=== PATIENT | male | born 1995 | race Caucasian/White ===

== ENCOUNTER 2016-04-19 17:46 | Inpatient (IN) | payer OTHER ==
[~2016-04-19] VITALS: Ht 185.4 cm; Wt 85.9 kg
[2016-04-19 18:47] LABS: MEAN CORPUSCULAR HGB CONC 35.2 g/dl (32.0-36.5); MEAN CORPUSCULAR VOLUME 87.8 fl (80.0-96.0); RED CELL DISTRIBUTION WIDTH 12.9 % (11.5-14.5); WHITE BLOOD COUNT 5.5 K/mm3 (4.0-10.0)
[2016-04-19 19:01] LABS: AMPHETAMINES LEVEL URINE NEGATIVE (NEGATIVE); BENZODIAZEPINES URINE NEGATIVE (NEGATIVE); COCAINE METABOLITE URINE NEGATIVE (NEGATIVE); CONTROL LINE INT CTR LINE PRESENT; METHADONE URINE NEGATIVE (NEGATIVE); OPIATES URINE NEGATIVE (NEGATIVE); TRICYCLIC ANTIDEPRESS URINE NEGATIVE (NEGATIVE)
[2016-04-19 19:16] LABS: ALBUMIN 4.1 GM/DL (3.2-5.2); ALBUMIN/GLOBULIN RATIO 1.28 (1.00-1.93); ALKALINE PHOSPHATASE 76 U/L (45-117); ALT/SGPT 27 U/L (12-78); ANION GAP 8 MEQ/L (8-16); AST/SGOT 14 U/L (15-37); BILIRUBIN,DIRECT 0.1 MG/DL (0.0-0.2); BILIRUBIN,TOTAL 0.5 MG/DL (0.2-1.0); BLOOD UREA NITROGEN 8 MG/DL (7-18); CALCIUM LEVEL 9.1 MG/DL (8.5-10.1); CARBON DIOXIDE LEVEL 28 MEQ/L (21-32); CHLORIDE LEVEL 109 MEQ/L (98-107); CREATININE FOR GFR 0.97 MG/DL (0.70-1.30); GLOMERULAR FILTRATION RATE > 60.0 (>60); GLUCOSE, FASTING 71 MG/DL (70-105); POTASSIUM SERUM 4.1 MEQ/L (3.5-5.1); SODIUM LEVEL 145 MEQ/L (136-145); TOTAL PROTEIN 7.3 GM/DL (6.4-8.2)
[2016-04-20] MEDS ORDERED: VENLAFAXINE **XR** 75MG CAPSULE PO SCH (09:00)
[2016-04-20] MEDS ORDERED: IBUP80TA PO (09:29)
--- NOTE | 2016-04-20 12:09 | EDDOCDS ---
Physician Documentation [facility] Name: Jose L Saldivar Age: 21 yrs Sex: Male : 1995 Arrival Date: 04/19/2016 Time: 17:46 Bed OBSERVATION Private MD: Disposition: 04/20/16 09:15 Hospitalization ordered by Lux Herr for Inpatient Admission. Preliminary diagnosis is Major depressive disorder, recurrent, moderate. - Bed requested for Admit. - Status is Inpatient Admission. me3 - Condition is Stable. - Problem is an acute exacerbation. - Symptoms are unchanged. Historical: - Allergies: no known allergies; - Home Meds: 1. none - PMHx: Depression; - PSHx: wisdom teeth extracted; - Social history: Smoking status: Patient states was never smoker of tobacco. Patient uses alcohol only on a social basis. pt reports drinking, "5-6 beers and some rum last pm". . No barriers to communication noted, The patient speaks fluent Samoan. - Family history: Not pertinent. - : The pt / caregiver states he / she is not on anticoagulants. Home medication list is obtained from the patient. - Exposure Risk Screening:: None identified. Vital Signs: 04/19 17:49 BP 196 / 83 RA Sitting (auto/reg); Pulse 89; Resp 18; Temp 97.5; Pulse Ox 100% ; Weight jrd 86.18 kg / 189.99 lbs (R); Height 6 ft. 1 in. (185.42 cm) (R); Pain 0/10; 19:21 BP 154 / 87; Pulse 69; Resp 18; Pulse Ox 98% ; mas 04/20 04:31 BP 159 / 70; Pulse 66; Resp 16; Temp 98.2(T); Pulse Ox 98% ; Pain 0/10; mas 12:00 BP 137 / 75; Pulse 64; Resp 16; Temp 97.3; Pulse Ox 99% ; me3 04/19 17:49 Body Mass Index 25.07 (86.18 kg, 185.42 cm) jrd MDM: 04/19 18:28 Consult PFS/PSA/Credit Cashier ordered. br1 18:28 Consult PFS/PSA/Credit Cashier: Patient's case requires discussion with on-call br1 Psychiatrist ordered. 18:28 PSA/PFS to call Nursing Senior Administrator Support, to enter patient data on [place] Safe Act if patient br1 involuntarily admitted or transferred for SI or HI ordered. 18:28 Confirm accurate psychiatric medication list and times of last dosage ordered. br1 18:28 Detain Pt Until Medically/PFS Cleared ordered. br1 18:29 Acetaminophen Level Ordered. EDMS 18:29 Basic Metabolic Profile Ordered. EDMS 18:29 Complete Blood Count Ordered. EDMS 18:29 Drug Eval Toxicology ED Only Ordered. EDMS 18:29 Ethyl Alcohol (ethanol) Ordered. EDMS 18:29 Liver Profile Ordered. EDMS 18:29 Salicylate Level Ordered. EDMS 18:29 Thyroid Stimulating Hormone Ordered. EDMS 18:32 REGULAR DIET PLASTIC MEDINA+DIET ordered. EDMS 18:52 Consult PFS/PSA/Credit Cashier complete. ml4 18:52 Consult PFS/PSA/Credit Cashier: Patient's case requires discussion with on-call [facility] Psychiatrist complete. 19:38 PSA/PFS to call Nursing Senior Administrator Support, to enter patient data on [place] Safe Act if patient ml4 involuntarily admitted or transferred for SI or HI complete. 20:18 Acetaminophen Level Reviewed. br1 20:18 Basic Metabolic Profile Reviewed. br1 20:18 Ethyl Alcohol (ethanol) Reviewed. br1 20:18 Liver Profile Reviewed. br1 20:18 Salicylate Level Reviewed. br1 20:18 Complete Blood Count Reviewed. br1 20:18 Drug Eval Toxicology ED Only Reviewed. br1 20:18 Thyroid Stimulating Hormone Reviewed. br1 20:19 Consult PFS/PSA/Socail Worker: Cleared medically for eval ordered. br1 20:23 Consult PFS/PSA/Socail Worker: Cleared medically for eval complete. cl 20:34 Other: [place] contact information was scanned into [employer] and attached to record. ml4 21:39 Financial registration complete. zo 21:41 [facility] Payment Agreement was scanned into [employer] and attached to record. zo 04/20 03:36 ECG WITH READING ER PHYS+CARDIAG ordered. EDMS 04:17 REGULAR DIET PLASTIC MEDINA+DIET ordered. EDMS 04:19 [facility] Legal paperwork was scanned into [employer] and attached to record. cl 11:16 REGULAR DIET PLASTIC MEDINA+DIET ordered. EDMS 11:57 Admit to COUNT INCLUDES THE [facility]: ordered. EDMS Signatures: Dispatcher [employer] EDMS Mattie Hernandez MD MD sd1 Brenden Carrillo, PSA PSA cl Traci Fuller,POLICE DISTRICT SWITCHBOARD OPERATOR POLICE DISTRICT SWITCHBOARD OPERATOR me3 Flor Paredes, PSA PSA ml4 Kyaw Heller Matthew, DO mm11 Prosper Escalante MD MD br1 Tulio GargRN RN mb9 The chart was reviewed and I authenticate all verbal orders and agree with the evaluation and treatment provided.Corrections: (The following items were deleted from the chart) 04/19 18:12 18:11 PMHx: none; mb9 mb9 Attachments: 21:41 [facility] Payment Agreement zo MTDD
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
[2016-04-20 12:25] VITALS: BP 138/88
[2016-04-20] MEDS ORDERED: No home medications (12:25)
[2016-04-20] MEDS ORDERED: MOM 30ML SUSPENSION UDC PO PRN (13:30)
[2016-04-20] MEDS ORDERED: MAALOX 30 ML SUSP *UDC PO PRN (13:30)
[2016-04-20] MEDS ORDERED: ACETAMINOPHEN TAB 650MG DOSE (2X325MG) PO PRN (13:30)
[2016-04-20 18:00] VITALS: BP 127/62
[2016-04-20] MEDS ORDERED: hydrOXYzine 50 MG TAB PO PRN (18:30)
--- NOTE | 2016-04-20 18:55 | HPEPDOC ---
[facility] History & Physical History and Physical DATE OF ADMISSION: Apr 20, 2016 at 12:17 CHIEF COMPLAINT: "Cause I have some depression and anxiety issues that need to be resolved". 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 Patient feels that his chain of command has lost janina in him. Patient also feels this is a punitive consequence of not saying the word sergeant to a chain of command's liking. Patient thinks this is a three -month transfer and demotion. Patient states because of this demotion he was feeling isolated and alone. Patient does not know anyone, all of his friends are in the heavy equipment mechanic unit. Patient admits after getting drunk on his own time he was not thinking clearly and cut himself on the thigh, approximately 15 times, superficially. Patient states he had cut at 16 years old. Patient states he has not cut since then. Patient feels that alcohol was a contributing factor to this poor decision. Patient does feel a release when he does cut. Patient had no intention of killing himself by cutting, only did it for the release. PAST PSYCHIATRIC HISTORY: Patient states is a 16-year-old he saw a psychiatrist due to cutting patient reports he saw this provider for approximately 6 months and was released from his care. Patient states he had therapy only was never put on medications. Patient reports this is his first psychiatric admission. ALLERGIES: Please see below. HOME MEDICATIONS: Patient denies. PAST MEDICAL HISTORY: Patient denies. FAMILY PSYCHIATRIC HISTORY: Patient reports his mother has anxiety and depression and is on meds patient thinks his dad has depression and is not on meds. Patient also knows of a maternal uncle had depression. Patient denies any other psychiatric or mental health issues in his family. 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 Patient has no children. Patient states he has a 26-year-old sister who he is somewhat close to. Patient also reports that he is supported by his parents. Patient also has a maternal uncle named Braxton that he feels supported by. SUBSTANCE ABUSE HISTORY: Patient denies any kind of drug use or abuse. Patient does report that he drinks 2-3 times a month, but not every month patient reports when he does drink he gets drunk. Patient does not know why this is patient does not state he can't drink and not get drunk. LEGAL HISTORY: Patient denies, only traffic tickets which are resolved. VITAL SIGNS: Temperature 97.8, pulse 76, respiratory rate 20, blood pressure 138 /88, at 12:25 PM. LABORATORY DATA: Please see below. Patient's alcohol level on admission was 0.025 which is high chloride is 109 which is high AST is 14 which is low. Remaining UDS was negative. MENTAL STATUS EXAMINATION: Patient is a 21 year old male, who is pleasant, cooperative, average grooming, average weight and build. Patient is wearing hospital scrubs and T-shirt. Patient is noted to ambulate with a steady gait. Speech: Is is of a normal rate, volume, and articulation, and is coherent and spontaneous. Language: Intact. Thought processes: Clear, not goal-directed. Thought content: Rational, logical, circumstantial. Abstract reasoning, and computation: Adequate. Description of associations: Intact. Description of abnormal or psychotic thoughts: Patient denies hallucinations, delusions, paranoia, obsessions or compulsions. Patient further denies homicidal or suicidal ideation or plan. Patient again states he only cut for the release it provides him. Patient does feel he is preoccupied with being alone. Pt. states his baseline depression is 2/10, anxiety baseline is 3/10. Pt. currently feels depression is 2-3/10 and anxiety is 3-4/10. Judgment: Poor. Insight: Poor. Oriented to: Time, person, place and surroundings. Recent and remote memory: No issues per patient. Attention span and concentration: Fair. Language: Normal. Fund of knowledge: Adequate. Mood: "I feel pretty good, better then the other night ". Patient appears sad, depressed, restricted, rational, logical. Affect: Appropriate, restricted, rational, logical, sad. DIAGNOSES: 1. Major depressive disorder, recurrent, moderate. 2. Alcohol use disorder. 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 Patient had been recently demoted in his position to [employer] which she feels is a direct punishment from his command. Due to this job change, patient has felt cut off from all of his support system and friends. Patient reports with the addition of alcohol, and drinking too much he did not make good decisions. Patient states he had no intention of self-harm or acting on the threat of killing himself. Patient does admit to having problems with depression and anxiety that he feels he needs to have treatment for. Patient states he is excited about going to [place] with his unit in October. Patient reports he likes his position in the [employer] when he can work as a heavy equipment mechanic. Patient appears sad, despondent at times. Patient does feel cut off from prior support system and feels this contributed to the problem. Patient understands and admits the need for him to learn some better coping mechanisms. Patient did not tell provider that there is a suicide attempt in his past at age 14. Per the record patient tried to drown himself, however he was never hospitalized for this incident, unknown if pt. ever told anyone about the incident. PROBLEM LIST: 1. Substance abuse. 2. Ineffective coping. 3. Depression. INITIAL MANAGEMENT PLAN: Patient to be continually assessed and evaluated. Maintain safety precautions. to attend groups and participate in unit programming and activities to develop effective coping strategies patient to be engaged in discharge planning process to ensure safe and effective discharge plan. Patient to follow-up with primary care physician upon discharge. Patient to start therapy and medication management services upon discharge. Patient to be referred to [facility] upon discharge. ESTIMATED LENGTH OF STAY: 5-7 DAYS. TIME SPENT COUNSELING AND COORDINATING INITIAL CARE: 50 minutes. Laboratory Data [facility] Labs Laboratory Tests 2 04/19/16 18:38: Acetaminophen Level < 2.0L, Aspartate Amino Transf (AST/SGOT) 14L, Alanine Aminotransferase (ALT/SGPT) 27, Alkaline Phosphatase 76, Total Bilirubin 0.5, Direct Bilirubin 0.1, Albumin 4.1, Albumin/Globulin Ratio 1.28, Anion Gap 8, Calcium Level 9.1, Ethyl Alcohol Level 0.025H, Glomerular Filtration Rate > 60.0 , Salicylates Level < 1.7L, Thyroid Stimulating Hormone (TSH) 1.390, Total Protein 7.3, Urine Amphetamines Screen NEGATIVE, Urine Benzodiazepines Screen NEGATIVE, Urine Opiates Screen NEGATIVE, Urine Barbiturates Screen NEGATIVE, Urine Cannabinoids Screen NEGATIVE, Urine Cocaine Metabolite Screen NEGATIVE, Urine Methadone Screen NEGATIVE, Urine Tricyclic Antidepressants NEGATIVE CBC/BMP Laboratory Tests 04/19/16 18:38 Red Blood Count 4.88, Mean Corpuscular Volume 87.8, Mean Corpuscular Hemoglobin 31.0, Mean Corpuscular Hemoglobin Concent 35.2, Red Cell Distribution Width 12.9 Medications Miscellaneous Medications ([No home medications]) . (Reported) Allergies Coded Allergies: No Known Allergies (Unverified , 04/20/16) SHANTI KNIGHT NP Apr 20, 2016 18:55
[2016-04-20] MEDS: traZODone 50 MG TAB PO PRN (22:07)
[2016-04-21 06:35] VITALS: BP 130/78
--- NOTE | 2016-04-21 08:24 | ECGEPIP ---
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
--- NOTE | 2016-04-21 11:20 | IPNPDOC ---
[facility] Progress Note Progress Note DATE OF SERVICE: 04/21/16 HISTORY: "Cause I have some depression and anxiety issues that need to be resolved". 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 Patient feels that his chain of command has lost janina in him. Patient also feels this is a punitive consequence of not saying the word sergeant to a chain of command's liking. Patient thinks this is a three-month transfer and demotion. Patient states because of this demotion he was feeling isolated and alone. Patient does not know anyone, all of his friends are in the construction equipment mechanic unit. Patient admits after getting drunk on his own time he was not thinking clearly and cut himself on the thigh, approximately 15 times, superficially. Patient states he had cut at 16 years old. Patient states he has not cut since then. Patient feels that alcohol was a contributing factor to this poor decision. Patient does feel a release when he does cut. Patient had no intention of killing himself by cutting, only did it for the release. PAST PSYCHIATRIC HISTORY: Patient states is a 16-year-old he saw a psychiatrist due to cutting patient reports he saw this provider for approximately 6 months and was released from his care. Patient states he had therapy only was never put on medications. Patient reports this is his first psychiatric admission. ALLERGIES: Please see below. HOME MEDICATIONS: Patient denies. PAST MEDICAL HISTORY: Patient denies. FAMILY PSYCHIATRIC HISTORY: Patient reports his mother has anxiety and depression and is on meds patient thinks his dad has depression and is not on meds. Patient also knows of a maternal uncle had depression. Patient denies any other psychiatric or mental health issues in his family. 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 Patient has no children. Patient states he has a 26-year-old sister who he is somewhat close to. Patient also reports that he is supported by his parents. Patient also has a maternal uncle named Braxton that he feels supported by. SUBSTANCE ABUSE HISTORY: Patient denies any kind of drug use or abuse. Patient does report that he drinks 2-3 times a month, but not every month patient reports when he does drink he gets drunk. Patient does not know why this is patient does not state he can't drink and not get drunk. LEGAL HISTORY: Patient denies, only traffic tickets which are resolved. VITAL SIGNS: Temperature 98.9, pulse 60, respiratory rate 20, blood pressure 130 /78. LABORATORY DATA: Please see below. Patient's alcohol level on admission was 0.025 which is high chloride is 109 which is high AST is 14 which is low. Remaining UDS was negative. CURRENT MEDICATIONS: See below. Trazodone 50 mg po q hs prn, Hydroxyzine hcl 50 mg po q 6h prn for anxiety/agitation. To continue to assess if anti depressant is needed as it makes pt. bordering on manic. MENTAL STATUS EXAMINATION: Patient is a 21 year old male, who is pleasant, cooperative, average grooming, average weight and build. Patient is wearing hospital scrubs and T-shirt. Patient is noted to ambulate with a steady gait. Speech: Is is of a normal rate, volume, and articulation, and is coherent and spontaneous. Language: Intact. Thought processes: Clear, not goal-directed. Thought content: Rational, logical. Abstract reasoning, and computation: Adequate. Description of associations: Intact. Description of abnormal or psychotic thoughts: Patient denies hallucinations, delusions, paranoia, obsessions or compulsions. Patient further denies homicidal or suicidal ideation or plan. Patient again states he only cut for the release it provided him. Pt. denies any thoughts of self-harm today. Patient does not feel any preoccupations at this time. Pt. states his baseline depression is 2/10, anxiety baseline is 3/10. Pt. currently feels depression is 0/10 and anxiety is 1-2/10. Judgment: Poor. Insight: Poor. Oriented to: Time, person, place and surroundings. Recent and remote memory: No issues per patient. Attention span and concentration: Fair. Language: Normal. Fund of knowledge: Adequate. Mood: "Good, I'm in a great mood". Patient appears brighter, less depressed, still restricted, rational, logical. Affect: Appropriate, restricted, rational, logical, less sad. DIAGNOSES: 1. Major depressive disorder, recurrent, moderate. 2. Alcohol use disorder. 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 Due to this job change, patient has felt cut off from all of his support system and friends. Patient reports with the addition of alcohol, and drinking too much he did not make good decisions. Patient states he had no intention of self-harm or acting on the threat of killing himself. Patient does admit to having problems with depression and anxiety, that he recognizes he needs to have treatment for. Patient states he is excited about going to [place] with his unit in October. 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 Patient appears sad, despondent at times. Patient does feel cut off from prior support system and feels this contributed to the problem. Patient understands and admits the need for him to learn some better coping mechanisms. Patient did not tell provider that there is a suicide attempt in his past at age 14. Per the record patient tried to drown himself, however he was never hospitalized for this incident, unknown if pt. ever told anyone about the incident. Pt. states he feels better today, attributes it to a good night's sleep. Pt. states he slept "Pretty well, pretty well, very solid". Pt. reports he slept for 7 hours and felt well rested, not groggy on rising. Pt. denies any nightmares or night terrors. MANAGEMENT PLAN: Patient to be continually assessed and evaluated. Maintain safety precautions. Patient to attend groups and participate in unit programming and activities to develop effective coping strategies . Patient to be engaged in discharge planning process to ensure safe and effective discharge plan. Patient to follow-up with primary care physician upon discharge. Patient to start therapy and medication management services upon discharge. Patient to be referred to [facility] upon discharge. TIME SPENT: 25 minutes. Discussed with patient that this will be providers last day. Pt. reassured that he will be transferred to another provider for the remainder of his care. Pt. states understanding. Vital Signs Vital Signs Date Time Temp Pulse Resp B/P Pulse Ox O2 Delivery O2 Flow Rate FiO2 04/21/16 06:35 98.9 60 20 130/78 04/20/16 12:25 Room Air Current Medications Current Medications Acetaminophen (Tylenol Tab) 650 mg Q6HP PRN PO HEADACHE or DISCOMFORT; Start at 13:30; Stop 05/20/16 at 13:29 Al Hydrox/Mg Hydrox/Simethicone (Mylanta) 30 ml Q4HP PRN PO HEARTBURN/ INDIGESTION; Start 04/20/16 at 13:30; Stop 05/20/16 at 13:29 Home Med (Med Rec Complete!) ASDIRECTED XX ; Start 04/20/16 at 09:30; Stop at 09:33; Status DC Hydroxyzine HCl (Atarax) 50 mg Q6HP PRN PO ANXIETY/AGITATION; Start 04/20/16 at 18:30; Stop 05/20/16 at 18:29 Magnesium Hydroxide (Milk Of Magnesia) 30 ml DAILYPRN PRN PO CONSTIPATION; Start 04/20/16 at 13:30; Stop 05/20/16 at 13:29 Trazodone HCl (Desyrel) 50 mg QHSP PRN PO INSOMNIA Last administered on 22:07; Start 04/20/16 at 13:30; Stop 05/20/16 at 13:29 Venlafaxine HCl (Effexor Xr) 75 mg QAM PO Last administered on 04/20/16 13 :54; Start 04/20/16 at 09:00; Stop 04/20/16 at 18:21; Status DC Allergies Coded Allergies: No Known Allergies (Unverified , 04/20/16) SHANTI KNIGHT NP Apr 21, 2016 11:20
--- NOTE | 2016-04-21 15:25 | HPE ---
DATE OF ADMISSION: 04/20/2016 HISTORY OF PRESENT ILLNESS: Please refer to the psychiatric history and evaluation for further details on this admission. This examination and history is intended for medical issues, which may need treatment, followup or consultation on this 21-year-old male. MEDICAL PRIMARY CARE PHYSICIAN: [facility] ALLERGIES: NO KNOWN ALLERGIES. SOCIAL HISTORY: He is a single. Ethyl alcohol (EtOH): Weekends. Smokes: None. Recreational drug use: None. PAST MEDICAL HISTORY: Negative. PAST SURGICAL HISTORY: Ida teeth extraction. HOME MEDICATIONS: None. 10-systems review was done. It was negative. PHYSICAL EXAMINATION: 21-year-old male in no acute distress. Height 73 inches. Weight 85.5 kg. Body mass index (BMI) 24.9 Patient is awake, alert and oriented times three. Pupils equal and reactive to light. Extraocular movements (EOMs) intact. Cornea and sclera clear. Conjunctiva was normal. No facial asymmetry. Pharynx, tongue and gum is pink and moist. Tongue is midline. Neck is supple, without lymphadenopathy. No thyromegaly. No goiter. Chest clear to auscultation, without wheeze or retraction. Heart is regular. Abdomen benign. Bowel sounds positive. Genitourinary()/rectal not done. Extremities show equal strength, full range of motion. No cyanosis, clubbing, or edema. Peripheral pulses equal and palpable bilaterally. Skin is warm and dry. IMPRESSION AND PLAN: 1. Psychiatric. Plan per psychiatry. 2. No acute medical issues.
[2016-04-21 18:00] VITALS: BP 137/86
[2016-04-21] MEDS: traZODone 50 MG TAB PO PRN (21:51)
[2016-04-22 06:31] VITALS: BP 128/75
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
--- NOTE | 2016-04-22 13:10 | EDDOCDS ---
Physician Documentation [facility] Name: Jose L Saldivar Age: 21 yrs Sex: Male : 1995 Arrival Date: 04/19/2016 Time: 17:46 Bed OBSERVATION Private MD: Disposition: 04/20/16 09:15 Hospitalization ordered by Lux Herr for Inpatient Admission. Preliminary diagnosis is Major depressive disorder, recurrent, moderate. - Bed requested for Admit. - Status is Inpatient Admission. me3 - Condition is Stable. - Problem is an acute exacerbation. - Symptoms are unchanged. Historical: - Allergies: no known allergies; - Home Meds: 1. none - PMHx: Depression; - PSHx: wisdom teeth extracted; - Social history: Smoking status: Patient states was never smoker of tobacco. Patient uses alcohol only on a social basis. pt reports drinking, "5-6 beers and some rum last pm". . No barriers to communication noted, The patient speaks fluent Croatian. - Family history: Not pertinent. - : The pt / caregiver states he / she is not on anticoagulants. Home medication list is obtained from the patient. - Exposure Risk Screening:: None identified. Vital Signs: 04/19 17:49 BP 196 / 83 RA Sitting (auto/reg); Pulse 89; Resp 18; Temp 97.5; Pulse Ox 100% ; Weight jrd 86.18 kg / 189.99 lbs (R); Height 6 ft. 1 in. (185.42 cm) (R); Pain 0/10; 19:21 BP 154 / 87; Pulse 69; Resp 18; Pulse Ox 98% ; mas 04/20 04:31 BP 159 / 70; Pulse 66; Resp 16; Temp 98.2(T); Pulse Ox 98% ; Pain 0/10; mas 12:00 BP 137 / 75; Pulse 64; Resp 16; Temp 97.3; Pulse Ox 99% ; me3 04/19 17:49 Body Mass Index 25.07 (86.18 kg, 185.42 cm) jrd MDM: 04/19 18:28 Consult PFS/PSA/Embedded Software Development Engineer ordered. br1 18:28 Consult PFS/PSA/Embedded Software Development Engineer: Patient's case requires discussion with on-call br1 Psychiatrist ordered. 18:28 PSA/PFS to call Nursing Hydraulic And Plumbing Installer, to enter patient data on [place] if patient br1 involuntarily admitted or transferred for SI or HI ordered. 18:28 Confirm accurate psychiatric medication list and times of last dosage ordered. br1 18:28 Detain Pt Until Medically/PFS Cleared ordered. br1 18:29 Acetaminophen Level Ordered. EDMS 18:29 Basic Metabolic Profile Ordered. EDMS 18:29 Complete Blood Count Ordered. EDMS 18:29 Drug Eval Toxicology ED Only Ordered. EDMS 18:29 Ethyl Alcohol (ethanol) Ordered. EDMS 18:29 Liver Profile Ordered. EDMS 18:29 Salicylate Level Ordered. EDMS 18:29 Thyroid Stimulating Hormone Ordered. EDMS 18:32 REGULAR DIET PLASTIC MEDINA+DIET ordered. EDMS 18:52 Consult PFS/PSA/Embedded Software Development Engineer complete. ml4 18:52 Consult PFS/PSA/Embedded Software Development Engineer: Patient's case requires discussion with on-call [facility] Psychiatrist complete. 19:38 PSA/PFS to call Nursing Hydraulic And Plumbing Installer, to enter patient data [place] if patient ml4 involuntarily admitted or transferred for SI or HI complete. 20:18 Acetaminophen Level Reviewed. br1 20:18 Basic Metabolic Profile Reviewed. br1 20:18 Ethyl Alcohol (ethanol) Reviewed. br1 20:18 Liver Profile Reviewed. br1 20:18 Salicylate Level Reviewed. br1 20:18 Complete Blood Count Reviewed. br1 20:18 Drug Eval Toxicology ED Only Reviewed. br1 20:18 Thyroid Stimulating Hormone Reviewed. br1 20:19 Consult PFS/PSA/Socail Worker: Cleared medically for eval ordered. br1 20:23 Consult PFS/PSA/Socail Worker: Cleared medically for eval complete. cl 20:34 Other: [place] contact information was scanned into [email or web address] and attached to record. ml4 21:39 Financial registration complete. zo 21:41 [facility] [place] Agreement was scanned into [email or web address] and attached to record. zo 04/20 03:36 ECG WITH READING ER PHYS+CARDIAG ordered. EDMS 04:17 REGULAR DIET PLASTIC MEDINA+DIET ordered. EDMS 04:19 [facility] Legal paperwork was scanned into [email or web address] and attached to record. cl 11:16 REGULAR DIET PLASTIC MEDINA+DIET ordered. EDMS 11:57 Admit to IM: ordered. EDMS 13:39 T-Sheet-- Draft Copy was scanned into [email or web address] and attached to record. gb 13:40 ECG/EKG was scanned into [employer] and attached to record. gb Signatures: Dispatcher [employer] EDMS Mattie Hernandez MD MD sd1 Lorena, Brenden, PSA PSA cl Brooklyn Broussard, Reg Reg gb Traci Fuller,TRAILER TRUCK DRIVER TRAILER TRUCK DRIVER me3 Flor Paredes, PSA PSA ml4 Kyaw Heller Matthew, DO DO mm11 Prosper Escalante MD MD br1 Tulio Garg,JUN RN mb9 The chart was reviewed and I authenticate all verbal orders and agree with the evaluation and treatment provided.Corrections: (The following items were deleted from the chart) 04/19 18:12 18:11 PMHx: none; pavel mb9 Attachments: 21:41 [facility] [place] Payment Agreement zo 13:39 T-Sheet-- Draft Copy gb 13:40 ECG/EKG gb Chart Complete MTDD
--- NOTE | 2016-04-22 13:10 | EDDOCDS ---
Physician Documentation [facility] Name: Jose L Saldivar Age: 21 yrs Sex: Male : 1995 Arrival Date: 04/19/2016 Time: 17:46 Bed OBSERVATION Private MD: Disposition: 04/20/16 09:15 Hospitalization ordered by Lux Herr for Inpatient Admission. Preliminary diagnosis is Major depressive disorder, recurrent, moderate. - Bed requested for Admit. - Status is Inpatient Admission. me3 - Condition is Stable. - Problem is an acute exacerbation. - Symptoms are unchanged. Historical: - Allergies: no known allergies; - Home Meds: 1. none - PMHx: Depression; - PSHx: wisdom teeth extracted; - Social history: Smoking status: Patient states was never smoker of tobacco. Patient uses alcohol only on a social basis. pt reports drinking, "5-6 beers and some rum last pm". . No barriers to communication noted, The patient speaks fluent South Korean. - Family history: Not pertinent. - : The pt / caregiver states he / she is not on anticoagulants. Home medication list is obtained from the patient. - Exposure Risk Screening:: None identified. Vital Signs: 04/19 17:49 BP 196 / 83 RA Sitting (auto/reg); Pulse 89; Resp 18; Temp 97.5; Pulse Ox 100% ; Weight jrd 86.18 kg / 189.99 lbs (R); Height 6 ft. 1 in. (185.42 cm) (R); Pain 0/10; 19:21 BP 154 / 87; Pulse 69; Resp 18; Pulse Ox 98% ; mas 04/20 04:31 BP 159 / 70; Pulse 66; Resp 16; Temp 98.2(T); Pulse Ox 98% ; Pain 0/10; mas 12:00 BP 137 / 75; Pulse 64; Resp 16; Temp 97.3; Pulse Ox 99% ; me3 04/19 17:49 Body Mass Index 25.07 (86.18 kg, 185.42 cm) jrd MDM: 04/19 18:28 Consult PFS/PSA/Water Hauler ordered. br1 18:28 Consult PFS/PSA/Water Hauler: Patient's case requires discussion with on-call br1 Psychiatrist ordered. 18:28 PSA/PFS to call Nursing Rn Palliative, to enter [place] data [place] if patient br1 involuntarily admitted or transferred for SI or HI ordered. 18:28 Confirm accurate psychiatric medication list and times of last dosage ordered. br1 18:28 Detain Pt Until Medically/PFS Cleared ordered. br1 18:29 Acetaminophen Level Ordered. EDMS 18:29 Basic Metabolic Profile Ordered. EDMS 18:29 Complete Blood Count Ordered. EDMS 18:29 Drug Eval Toxicology ED Only Ordered. EDMS 18:29 Ethyl Alcohol (ethanol) Ordered. EDMS 18:29 Liver Profile Ordered. EDMS 18:29 Salicylate Level Ordered. EDMS 18:29 Thyroid Stimulating Hormone Ordered. EDMS 18:32 REGULAR DIET PLASTIC MEDINA+DIET ordered. EDMS 18:52 Consult PFS/PSA/Water Hauler complete. ml4 18:52 Consult PFS/PSA/Water Hauler: Patient's case requires discussion with on-call [facility] Psychiatrist complete. 19:38 PSA/PFS to call Nursing Rn Palliative, to enter [place] data [place] if patient ml4 involuntarily admitted or transferred for SI or HI complete. 20:18 Acetaminophen Level Reviewed. br1 20:18 Basic Metabolic Profile Reviewed. br1 20:18 Ethyl Alcohol (ethanol) Reviewed. br1 20:18 Liver Profile Reviewed. br1 20:18 Salicylate Level Reviewed. br1 20:18 Complete Blood Count Reviewed. br1 20:18 Drug Eval Toxicology ED Only Reviewed. br1 20:18 Thyroid Stimulating Hormone Reviewed. br1 20:19 Consult PFS/PSA/Socail Worker: Cleared medically for eval ordered. br1 20:23 Consult PFS/PSA/Socail Worker: Cleared medically for eval complete. cl 20:34 Other: [place] contact information was scanned into [employer] and attached to record. ml4 21:39 Financial registration complete. zo 21:41 [facility] [place] Payment Agreement was scanned into [employer] and attached to record. zo 04/20 03:36 ECG WITH READING ER PHYS+CARDIAG ordered. EDMS 04:17 REGULAR DIET PLASTIC MEDINA+DIET ordered. EDMS 04:19 [facility] Legal paperwork was scanned into [employer] and attached to record. cl 11:16 REGULAR DIET PLASTIC MEDINA+DIET ordered. EDMS 11:57 Admit to IM: ordered. EDMS 13:39 T-Sheet-- Draft Copy was scanned into [employer] and attached to record. gb 13:40 ECG/EKG was scanned into [employer] and attached to record. gb Signatures: Dispatcher [employer] EDMS Mattie Hernandez MD MD sd1 Lorena, Brenden, PSA PSA cl Brooklyn Broussard, Reg Reg gb Traci Fuller,DAIRY CONSULTANT DAIRY CONSULTANT me3 Flor Paredes, PSA PSA ml4 Kyaw Heller Matthew, DO DO mm11 Prosper Escalante MD MD br1 Tulio Garg,JUN RN mb9 The chart was reviewed and I authenticate all verbal orders and agree with the evaluation and treatment provided.Corrections: (The following items were deleted from the chart) 04/19 18:12 18:11 PMHx: none; pavel mb9 Attachments: 21:41 [facility] [place] [place] Payment Agreement zo 13:39 T-Sheet-- Draft Copy gb 13:40 ECG/EKG gb Chart Complete MTDD
[2016-04-22 18:00] VITALS: BP 143/68
[2016-04-22] MEDS: traZODone 50 MG TAB PO PRN (22:12)
--- NOTE | 2016-04-22 22:18 | IPN ---
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 SUBJECTIVE: "I'm feeling better." OBJECTIVE: Patient reports that is improving slowly. The patient says that has been thinking and talking to his therapist and in group about his issues and has been able to progress through the depressive symptoms and can see how they are less intense at this time than they were at admission. Patient is no longer frustrated. Patient is able to contract for safety in our unit and denies suicidal or homicidal ideation during the interview. There is no evidence of psychotic symptoms. No auditory or visual hallucinations or delusions. Patient is interacting better with other patients and staff. Patient is motivated for treatment. Patient reports sleeping well without needing any medication to help him sleep at this time. MENTAL STATUS EXAMINATION: Patient is dressed in [facility]. Patient is calm and cooperative. Has fair eye contact. Speech is slow and monotone. Mood is depressed and anxious but improving. Affect is congruent with mood. No delusions or hallucinations. Memory is fair. The patient is fully oriented. Associations are intact. Thinking is logical. Thought content is appropriate. Patient is able to contract for safety and denies suicidal or homicidal ideation during the interview. Insight and judgment are limited. ASSESSMENT: 1. Unspecified depressive disorder. 2. Depression. 3. Suicidal ideation. 4. Self-injurious behavior. PLAN: 1. Continue close observation. 2. Patient prefers not to take psychotropic medications. 3. Continue with individual and group therapy.
[2016-04-23 06:41] VITALS: BP 136/69
--- NOTE | 2016-04-23 16:21 | IPN ---
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 SUBJECTIVE: "I'm feeling better." OBJECTIVE: Patient continues to improve slowly. Patient continues with some degree of psychomotor retardation but is improving. Speech is soft and monotone. He is able to contract for safety in the unit and denies suicidal or homicidal ideation during the interview. Patient is motivated to continue his treatment and is satisfied with the results of going to all psychotherapeutic activities. Patient states that he has been using these therapeutic tools, and he believes they are effective. MENTAL STATUS EXAMINATION: Patient dressed in [facility]. Patient is calm and cooperative. Has fair eye contact. Speech is slow and monotone. Mood is depressed and anxious but improving. Affect is congruent with mood. No delusions or hallucinations. Memory is fair. Patient is fully oriented. Associations are intact. Thinking is logical. Thought content is appropriate. Patient is able to contract for safety in our unit. Insight and judgment are improving. ASSESSMENT: 1. Unspecified depressive disorder. 2. Depression. 3. Suicidal ideation. 4. Self-injurious behavior. PLAN: 1. Continue close observation. 2. Patient prefers not to take medication for depression and anxiety. 3. Continue individual and group therapy.
[2016-04-23 18:00] VITALS: BP 155/76
[2016-04-23] MEDS: traZODone 50 MG TAB PO PRN (22:03)
[2016-04-24 06:31] VITALS: BP 142/80
[2016-04-24 18:08] VITALS: BP 159/73
--- NOTE | 2016-04-24 19:38 | IPNPDOC ---
[facility] Progress Note Progress Note DATE OF SERVICE: 04/24/16 Subjective: Patient visible in the milieu, social. He is mildly anxious on initiation of interview. He is calm and cooperative. He reports increasing mood since admission. He denies SI/HI and AH/VH. Patient reports fair sleep and appetite. Patient denies offer to initiate antidepressant therapy for mood/anxiety. Objective: VITALS: wnl MENTAL STATUS EXAMINATION: Patient looks stated age, in NAD, social, calm and cooperative. Has fair eye contact. Speech RRR. Mood is anxious but improving. Affect is mildly anxious. No delusions or hallucinations noted. Memory is fair. The patient is fully oriented. Associations are intact. Thinking is linear and logical. Thought content is appropriate. Patient denies suicidal or homicidal ideation during the interview. Insight and judgment are fair. ASSESSMENT: 1. Depressive disorder, unspecified. 2. Alcohol use d/o. PLAN: 1. Continue close observation. 2. Patient declines offer to initiate antidepressant therapy. 3. Continue with individual and group therapy. 4. Recommend outpt psychotherapy/counseling referral. Time spent: 30minutes Vital Signs Vital Signs Date Time Temp Pulse Resp B/P Pulse Ox O2 Delivery O2 Flow Rate FiO2 04/24/16 18:08 97.8 72 16 159/73 04/20/16 12:25 Room Air Current Medications Current Medications Acetaminophen (Tylenol Tab) 650 mg Q6HP PRN PO HEADACHE or DISCOMFORT; Start at 13:30; Stop 05/20/16 at 13:29 Al Hydrox/Mg Hydrox/Simethicone (Mylanta) 30 ml Q4HP PRN PO HEARTBURN/ INDIGESTION; Start 04/20/16 at 13:30; Stop 05/20/16 at 13:29 Home Med (Med Rec Complete!) ASDIRECTED XX ; Start 04/20/16 at 09:30; Stop at 09:33; Status DC Hydroxyzine HCl (Atarax) 50 mg Q6HP PRN PO ANXIETY/AGITATION; Start 04/20/16 at 18:30; Stop 05/20/16 at 18:29 Magnesium Hydroxide (Milk Of Magnesia) 30 ml DAILYPRN PRN PO CONSTIPATION; Start 04/20/16 at 13:30; Stop 05/20/16 at 13:29 Trazodone HCl (Desyrel) 50 mg QHSP PRN PO INSOMNIA Last administered on 22:03; Start 04/20/16 at 13:30; Stop 05/20/16 at 13:29 Venlafaxine HCl (Effexor Xr) 75 mg QAM PO Last administered on 04/20/16 13 :54; Start 04/20/16 at 09:00; Stop 04/20/16 at 18:21; Status DC Allergies Coded Allergies: No Known Allergies (Unverified , 04/20/16) FRACISCO LR MD Apr 24, 2016 19:38
[2016-04-24] MEDS: traZODone 50 MG TAB PO PRN (22:33)
[2016-04-25 06:37] VITALS: BP 141/75
[2016-04-25 18:00] VITALS: BP 138/76
[2016-04-25] MEDS: traZODone 50 MG TAB PO PRN (22:37)
[2016-04-26 06:32] VITALS: BP 122/76
--- NOTE | 2016-04-26 14:41 | IPN ---
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 SUBJECTIVE: "I feel good." OBJECTIVE: Patient is significantly improved from admission. Patient is motivated for treatment. Patient does not feel depressed at this time, is interacting well with peers and staff, is able to smile. There is no psychomotor retardation. No evidence of auditory or visual hallucinations or delusions. Patient denies suicidal or homicidal ideation during the interview and is motivated for treatment at discharge. MENTAL STATUS EXAMINATION: Patient is dressed in [facility]. Patient is cooperative, has fair eye contact. Speech is normal in rate, volume, and articulation, is coherent and is spontaneous. Patient is euthymic. Affect is congruent with mood. No delusions. No hallucinations. Short-term and long-term memory are intact. Thought processes are coherent, logical, and goal-directed. Patient is fully oriented. Denies suicidal or homicidal ideation. Insight and judgment is fair. ASSESSMENT: 1. Adjustment disorder with depressed and anxious mood. PLAN: 1. Will discharge the patient after the chain of command meeting tomorrow morning.
[2016-04-26 18:00] VITALS: BP 138/72
[2016-04-26] MEDS: traZODone 50 MG TAB PO PRN (21:57)
[2016-04-27 06:32] VITALS: BP 121/74
[2016-04-27] MEDS ORDERED: TRAZO50TA PO (09:04)
--- NOTE | 2016-04-28 07:39 | MHDS ---
DATE OF ADMISSION: 04/20/2016 DATE OF DISCHARGE: 04/27/2016 HISTORY OF PRESENT ILLNESS: The following information is according to the initial evaluation of Blancamary Conley, nurse practitioner, her progress note and my own progress note. On 04/20/2016, Ms. 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 Patient feels that his chain of command has lost janina in him. Patient also feels this is a punitive consequence of not saying the word sergeant to a chain of command's liking. The patient thinks this is a three-month transfer and demotion. Patient states because of this demotion he was feeling isolated and alone. Patient also does not know anyone all of his friends that are in the trouble shooting mechanic unit. Patient admits after getting drunk on his own time he was not thinking clearly and cut himself on the thigh, approximately 15 times, superficially. Patient states he had cut at 16 years old. Patient stated that he has not cut since then. Patient feels that alcohol was a contributing factor to this poor decision. Patient does feel a release when he does cut. Patient had no intention of killing himself by cutting, only did it for the release. LABS AT ADMISSION: CBC was within normal limits. CMP was unremarkable. Urine drug screen (UDS) was negative. Blood alcohol level was 0.25. HOSPITAL COURSE: After the first evaluation, Ms. Conley started the patient on trazodone 50 mg by mouth at bedtime as needed for insomnia. The patient preferred not to be started on psychotropic medication and deal with his symptoms and problems with psychosocial intervention. The patient was very motivated for treatment. He was going to all psychotherapeutic activities of the unit and by his report was learning "quite a few tools" to use in the outpatient setting. The patient improved slowly, but steadily. By the end of the hospitalization, his mood has significantly improved. He is denying suicidal or homicidal ideation. He is motivated to continue treatment on the outpatient basis. He is denying any auditory or visual hallucinations, delusions, suicidal or homicidal ideation. Therefore, after a chain of command, the patient was discharged on 04/27/2016 in stable condition. MEDICATIONS AT DISCHARGE: No psychotropic medications. MENTAL STATUS EXAMINATION AT DISCHARGE: The patient is dressed in casual clothes. The patient is calm and cooperative. His speech is clear, coherent, with normal rate and is spontaneous. The patient has good eye contact. Mood is euthymic. Affect is appropriate and congruent with mood. Patient is oriented to time, place, person and situation. Maintains attention and concentration correctly. Instant recall, recent and remote memory. Maintains attention and concentration correctly. Instant recall, recent and remote memory are intact. Thought processes are coherent, logical, and goal directed. Patient does not have auditory or visual hallucinations. Patient does not have paranoid, persecutory, somatic, grandiose or amish delusions. Patient denies suicidal or homicidal ideation. Judgment and insight are fair. DISCHARGE DIAGNOSES: Pointblank I: Adjustment disorder with depressed and anxious mood. Pointblank II: Deferred. Pointblank III: Superficial cuts on the thigh. INSTRUCTIONS TO THE PATIENT: The patient has an appointment for individual psychotherapy and primary care physician as outpatient.
== END 2016-04-27 10:15 | disposition home or self-care (01) | DRG 882 ==
LOC: M ED 17:46 → M PSY 04-20 12:17
PROVIDERS: ADMIT Psychiatry & Neurology Psychiatry; ATTEND Psychiatry & Neurology Psychiatry
DX: F43.23 Adjustment disorder with mixed anxiety and depressed mood (principal); Z68.24 Body mass index [BMI] 24.0-24.9, adult